=== PATIENT | male | born 1945 | race Caucasian/White ===

== ENCOUNTER 2017-05-16 18:56 | Emergency (ER) | payer MEDICARE, BC ==
[~2017-05-16] VITALS: Ht 175.3 cm; Wt 90.8 kg
[2017-05-16 19:53] LABS: HEMATOCRIT 39.4 % (39.0-50.0); HEMOGLOBIN 13.2 g/dl (14.0-18.0); IMMATURE GRANULOCYTES 0.5 % (0.0-1.0); MEAN CELL VOLUME 91.8 fL CALC (80.0-100.0); MEAN CORPUSCULAR HGB 30.8 pG CALC (26.0-32.0); MEAN CORPUSCULAR HGB CONC 33.5 g/L CALC (32.0-36.0); NEUT# 5.05 thou/uL (1.82-7.42); RED BLOOD COUNT 4.29 mill/uL (4.70-6.10); RED CELL DISTRI WIDTH 13.9 % (11.5-15.5)
--- NOTE | 2017-05-16 19:59 | NUR ---
BREATHING TREATMENT GIVEN. BREATHING TECH. FOR GOOD DEPOSITION TO THE LUNGS.
[2017-05-16 20:05] LABS: ALBUMIN 4.5 g/dL (3.2-5.0); ALKALINE PHOSPHATASE 122 u/l (38-126); ANION GAP 17 (6-22 (CALC)); BILIRUBIN, TOTAL 1.9 mg/dL (0.0-1.4); BUN 8 mg/dL (8-23); BUN/CREATININE RATIO 8 (12-20 (CALC)); CARBON DIOXIDE 30 mmol/l (22-30); CHLORIDE 96 mmol/l (95-108); CREATININE 1.1 mg/dL (0.7-1.3); GFR > 60 ML/MIN (>=60 (CALC)); GFR FOR AFR.AMER. > 60 ML/MIN (>=60 (CALC)); POTASSIUM 4.2 mmol/l (3.5-5.1); SGOT/AST 29 u/l (19-48); SGPT/ALT 28 u/l (11-66); SODIUM 139 mmol/l (137-146); TOTAL PROTEIN 7.2 g/dL (6.3-8.2)
[2017-05-16 20:14] LABS: MYOGLOBIN 47 ng/mL (0 - 121)
[2017-05-16 20:17] LABS: INFLUENZA A POSITIVE (NONE DETECT); INFLUENZA B NONE DETECTED (NONE DETECT)
[2017-05-16] MEDS ORDERED: MEDDOSEPAK PO (20:37)
[2017-05-16] MEDS ORDERED: TAM75CAP PO (20:37)
[2017-05-16] MEDS ORDERED: ZPAK PO (20:53)
[2017-05-16 21:10] VITALS: BP 123/66
== END 2017-05-16 21:22 | disposition left against medical advice (07) ==
LOC: ED 18:56
PROVIDERS: Emergency Medicine
DX: J44.1 Chronic obstructive pulmonary disease with (acute) exacerbation (principal); J11.1 Influenza due to unidentified influenza virus with other respiratory manifestations; I48.91 Unspecified atrial fibrillation; Z79.01 Long term (current) use of anticoagulants; Z91.19 Patient's noncompliance with other medical treatment and regimen; R06.02 Shortness of breath

== ENCOUNTER 2017-08-23 19:14 | Observation (INO) | payer MEDICARE, BC ==
[~2017-08-23] VITALS: Ht 175.3 cm; Wt 96.0 kg
[~2017-08-23 19:14] MED LIST: MEDDOSEPAK PO; TAM75CAP PO; ZPAK PO
[2017-08-23] MEDS ORDERED: ADVAIR DISK2 IN (19:47)
[2017-08-23] MEDS ORDERED: WARFARIN4 MG PO (19:48)
[2017-08-23] MEDS ORDERED: LOPRESSOR 550 MG/TAB PO (19:49)
[2017-08-23] MEDS ORDERED: SERTRALINE50 MG PO (19:49)
[2017-08-23] MEDS ORDERED: DILTIAZEM180 M1 PO (19:49)
[2017-08-23] MEDS ORDERED: ALPRAZOLAM0.25 MG PO (19:50)
[2017-08-23 19:52] LABS: HEMATOCRIT 41.1 % (39.0-50.0); HEMOGLOBIN 13.6 g/dl (14.0-18.0); IMMATURE GRANULOCYTES 0.3 % (0.0-1.0); MEAN CELL VOLUME 92.8 fL CALC (80.0-100.0); MEAN CORPUSCULAR HGB 30.7 pG CALC (26.0-32.0); MEAN CORPUSCULAR HGB CONC 33.1 g/L CALC (32.0-36.0); NEUT# 5.44 thou/uL (1.82-7.42); RED BLOOD COUNT 4.43 mill/uL (4.70-6.10); RED CELL DISTRI WIDTH 14.1 % (11.5-15.5)
[2017-08-23 20:06] LABS: ALBUMIN 4.1 g/dL (3.2-5.0); ALKALINE PHOSPHATASE 146 u/l (38-126); BILIRUBIN, TOTAL 1.1 mg/dL (0.0-1.4); BUN 11 mg/dL (8-23); BUN/CREATININE RATIO 14 (12-20 (CALC)); CARBON DIOXIDE 30 mmol/l (22-30); CHLORIDE 93 mmol/l (95-108); CREATININE 0.8 mg/dL (0.7-1.3); GFR > 60 ML/MIN (>=60 (CALC)); GFR FOR AFR.AMER. > 60 ML/MIN (>=60 (CALC)); SGOT/AST 34 u/l (19-48); SGPT/ALT 26 u/l (11-66); SODIUM 137 mmol/l (137-146); TOTAL PROTEIN 7.2 g/dL (6.3-8.2)
[2017-08-23 20:15] LABS: MYOGLOBIN 39 ng/mL (0 - 121)
[2017-08-23 20:26] LABS: INTERNATIONAL NORMALIZED RATIO 4.4 RATIO (0.7-1.3); PROTHROMBIN TIME 50.5 SECONDS (9.0-12.5)
[2017-08-23 21:17] LABS: ANION GAP 19 (6-22 (CALC)); POTASSIUM 3.8 mmol/l (3.5-5.1)
[2017-08-24 00:25] VITALS: BP 137/73
[2017-08-24 04:10] VITALS: BP 129/78
[2017-08-24 06:15] LABS: HEMATOCRIT 39.1 % (39.0-50.0); HEMOGLOBIN 13.1 g/dl (14.0-18.0); IMMATURE GRANULOCYTES 0.2 % (0.0-1.0); MEAN CELL VOLUME 93.5 fL CALC (80.0-100.0); MEAN CORPUSCULAR HGB 31.3 pG CALC (26.0-32.0); MEAN CORPUSCULAR HGB CONC 33.5 g/L CALC (32.0-36.0); NEUT# 3.93 thou/uL (1.82-7.42); RED BLOOD COUNT 4.18 mill/uL (4.70-6.10)
[2017-08-24 06:15] LABS: URINE BILIRUBIN - DIPSTICK NEGATIVE (NEGATIVE); URINE BLOOD DIPSTICK NEGATIVE (NEGATIVE); URINE COLOR YELLOW; URINE GLUCOSE - DIPSTICK NEGATIVE (NEGATIVE); URINE KETONE NEGATIVE (NEGATIVE); URINE LEUK ESTERASE NEGATIVE (NEGATIVE); URINE NITRITE - DIPSTICK NEGATIVE (Negative); URINE PROTEIN - DIPSTICK NEGATIVE (NEG-TRACE); URINE SPECIFIC GRAVITY <=1.005; URINE UROBILINOGEN - DIPSTICK 0.2 E.U./dL (0.2)
[2017-08-24 06:19] LABS: URINE CLARITY CLEAR
[2017-08-24 06:27] LABS: ANION GAP 16 (6-22 (CALC)); BUN 13 mg/dL (8-23); BUN/CREATININE RATIO 17 (12-20 (CALC)); CARBON DIOXIDE 31 mmol/l (22-30); CHLORIDE 95 mmol/l (95-108); CREATININE 0.8 mg/dL (0.7-1.3); GFR > 60 ML/MIN (>=60 (CALC)); GFR FOR AFR.AMER. > 60 ML/MIN (>=60 (CALC)); POTASSIUM 4.1 mmol/l (3.5-5.1); SODIUM 138 mmol/l (137-146)
[2017-08-24 06:32] LABS: INTERNATIONAL NORMALIZED RATIO 3.8 RATIO (0.7-1.3); PROTHROMBIN TIME 43.5 SECONDS (9.0-12.5)
[2017-08-24 07:30] VITALS: BP 133/77
[2017-08-24 11:38] VITALS: BP 136/75
[2017-08-24] MEDS ORDERED: PREDNISONE20 MG PO (12:02)
[2017-08-24] MEDS ORDERED: Levaquin PO (12:02)
== END 2017-08-24 13:44 | disposition home or self-care (01) ==
LOC: ED 19:14 → ED-I 20:55 → ED 21:06 → MS2 21:07
PROVIDERS: ADMIT Internal Medicine; ATTEND Internal Medicine
DX: J44.1 Chronic obstructive pulmonary disease with (acute) exacerbation (principal); J44.0 Chronic obstructive pulmonary disease with (acute) lower respiratory infection; J20.9 Acute bronchitis, unspecified; I48.91 Unspecified atrial fibrillation; J96.10 Chronic respiratory failure, unspecified whether with hypoxia or hypercapnia; R79.1 Abnormal coagulation profile; T45.515A Adverse effect of anticoagulants, initial encounter; I10 Essential (primary) hypertension; F41.9 Anxiety disorder, unspecified; Z95.0 Presence of cardiac pacemaker; Z99.81 Dependence on supplemental oxygen; Z87.891 Personal history of nicotine dependence; R06.02 Shortness of breath

== ENCOUNTER 2017-08-24 19:29 | Observation (INO) | payer MEDICARE, BC ==
[~2017-08-24] VITALS: Ht 175.3 cm; Wt 91.5 kg
[~2017-08-24 19:29] MED LIST changes: +ADVAIR DISK2 IN; +ALPRAZOLAM0.25 MG PO; +DILTIAZEM180 M1 PO; +LOPRESSOR 550 MG/TAB PO; +Levaquin PO; +PREDNISONE20 MG PO; +SERTRALINE50 MG PO; +WARFARIN4 MG PO
[2017-08-24 20:08] LABS: HEMATOCRIT 37.3 % (39.0-50.0); HEMOGLOBIN 12.4 g/dl (14.0-18.0); IMMATURE GRANULOCYTES 0.7 % (0.0-1.0); MEAN CELL VOLUME 92.8 fL CALC (80.0-100.0); MEAN CORPUSCULAR HGB 30.8 pG CALC (26.0-32.0); MEAN CORPUSCULAR HGB CONC 33.2 g/L CALC (32.0-36.0); NEUT# 5.61 thou/uL (1.82-7.42); RED BLOOD COUNT 4.02 mill/uL (4.70-6.10); RED CELL DISTRI WIDTH 13.9 % (11.5-15.5)
[2017-08-24 20:23] LABS: ALKALINE PHOSPHATASE 109 u/l (38-126); ANION GAP 16 (6-22 (CALC)); BILIRUBIN, TOTAL 0.5 mg/dL (0.0-1.4); BUN 14 mg/dL (8-23); BUN/CREATININE RATIO 20 (12-20 (CALC)); CARBON DIOXIDE 30 mmol/l (22-30); CHLORIDE 92 mmol/l (95-108); CREATININE 0.7 mg/dL (0.7-1.3); GFR > 60 ML/MIN (>=60 (CALC)); GFR FOR AFR.AMER. > 60 ML/MIN (>=60 (CALC)); POTASSIUM 4.3 mmol/l (3.5-5.1); SGOT/AST 31 u/l (19-48); SGPT/ALT 39 u/l (11-66); SODIUM 134 mmol/l (137-146)
[2017-08-24 20:35] LABS: MYOGLOBIN 71 ng/mL (0 - 121)
[2017-08-24 21:11] LABS: INFLUENZA A NONE DETECTED (NONE DETECT); INFLUENZA B NONE DETECTED (NONE DETECT)
[2017-08-24 21:25] VITALS: BP 154/80
[2017-08-25] VITALS (7 sets, daily range): BP systolic 106–179; BP diastolic 60–98
[2017-08-25 05:21] LABS: HEMOGLOBIN 13.6 g/dl (14.0-18.0); IMMATURE GRANULOCYTES 0.7 % (0.0-1.0); MEAN CORPUSCULAR HGB 31.2 pG CALC (26.0-32.0); MEAN CORPUSCULAR HGB CONC 33.2 g/L CALC (32.0-36.0); NEUT# 5.86 thou/uL (1.82-7.42); RED BLOOD COUNT 4.36 mill/uL (4.70-6.10)
[2017-08-25 05:36] LABS: BUN 14 mg/dL (8-23); BUN/CREATININE RATIO 19 (12-20 (CALC)); CARBON DIOXIDE 32 mmol/l (22-30); CHLORIDE 95 mmol/l (95-108); CREATININE 0.7 mg/dL (0.7-1.3); GFR > 60 ML/MIN (>=60 (CALC)); GFR FOR AFR.AMER. > 60 ML/MIN (>=60 (CALC)); POTASSIUM 4.4 mmol/l (3.5-5.1); PROTHROMBIN TIME 23.1 SECONDS (9.0-12.5)
[2017-08-25 05:37] LABS: ANION GAP 18 (6-22 (CALC)); SODIUM 141 mmol/l (137-146)
[2017-08-26] VITALS (7 sets, daily range): BP systolic 152–170; BP diastolic 79–91
[2017-08-26 05:20] LABS: HEMATOCRIT 44.2 % (39.0-50.0); HEMOGLOBIN 14.3 g/dl (14.0-18.0); MEAN CELL VOLUME 96.3 fL CALC (80.0-100.0); MEAN CORPUSCULAR HGB 31.2 pG CALC (26.0-32.0); MEAN CORPUSCULAR HGB CONC 32.4 g/L CALC (32.0-36.0); RED BLOOD COUNT 4.59 mill/uL (4.70-6.10); RED CELL DISTRI WIDTH 14.1 % (11.5-15.5)
[2017-08-26 05:29] LABS: ANION GAP 18 (6-22 (CALC)); BUN 18 mg/dL (8-23); BUN/CREATININE RATIO 22 (12-20 (CALC)); CARBON DIOXIDE 34 mmol/l (22-30); CHLORIDE 95 mmol/l (95-108); CREATININE 0.8 mg/dL (0.7-1.3); GFR > 60 ML/MIN (>=60 (CALC)); GFR FOR AFR.AMER. > 60 ML/MIN (>=60 (CALC)); SODIUM 143 mmol/l (137-146)
[2017-08-26 05:45] LABS: INTERNATIONAL NORMALIZED RATIO 1.8 RATIO (0.7-1.3); PROTHROMBIN TIME 20.6 SECONDS (9.0-12.5)
[2017-08-27 03:05] VITALS: BP 153/77
[2017-08-27 04:55] LABS: INTERNATIONAL NORMALIZED RATIO 1.8 RATIO (0.7-1.3); PROTHROMBIN TIME 20.4 SECONDS (9.0-12.5)
[2017-08-27 04:57] LABS: ANION GAP 15 (6-22 (CALC)); BUN 21 mg/dL (8-23); BUN/CREATININE RATIO 25 (12-20 (CALC)); CARBON DIOXIDE 36 mmol/l (22-30); CHLORIDE 93 mmol/l (95-108); CREATININE 0.8 mg/dL (0.7-1.3); GFR > 60 ML/MIN (>=60 (CALC)); GFR FOR AFR.AMER. > 60 ML/MIN (>=60 (CALC)); POTASSIUM 3.9 mmol/l (3.5-5.1); SODIUM 139 mmol/l (137-146)
[2017-08-27 07:56] VITALS: BP 142/97
[2017-08-27 08:05] VITALS: BP 142/97
[2017-08-27 08:35] LABS: CHOLESTEROL HDL RATIO 4.5 (<4.4 (CALC))
[2017-08-27] MEDS ORDERED: SPIRIVA HANDIHALER IN (12:25)
[2017-08-27] MEDS ORDERED: LEVAQUIN750 MG PO (12:25)
[2017-08-27] MEDS ORDERED: ALBUTEROL SUL0.083 % IN (12:25)
[2017-08-27] MEDS ORDERED: PREDNISONE10 MG PO (12:27)
== END 2017-08-27 15:13 | disposition home or self-care (01) ==
LOC: ED 19:29 → ED-I 20:49 → ED 20:59 → MS2 21:00
PROVIDERS: Emergency Medicine; Nurse Practitioner Family; ADMIT Internal Medicine; ATTEND Internal Medicine
DX: J44.1 Chronic obstructive pulmonary disease with (acute) exacerbation (principal); J96.11 Chronic respiratory failure with hypoxia; J96.12 Chronic respiratory failure with hypercapnia; I10 Essential (primary) hypertension; F41.1 Generalized anxiety disorder; I48.2 Chronic atrial fibrillation; F32.9 Major depressive disorder, single episode, unspecified; Z87.891 Personal history of nicotine dependence; Z79.01 Long term (current) use of anticoagulants; Z99.81 Dependence on supplemental oxygen; Z95.0 Presence of cardiac pacemaker; Z77.090 Contact with and (suspected) exposure to asbestos; Z79.899 Other long term (current) drug therapy; R06.02 Shortness of breath

== ENCOUNTER → 2018-05-11 | Outpatient (REF) | payer MEDICARE, BC ==
[~2018-05-11] MED LIST changes: +ALBUTEROL SUL0.083 % IN; +LEVAQUIN750 MG PO; +PREDNISONE10 MG PO; +SPIRIVA HANDIHALER IN
[2018-05-11 14:13] LABS: INTERNATIONAL NORMALIZED RATIO 1.6 RATIO (0.7-1.3); PROTHROMBIN TIME 16.9 SECONDS (9.0-12.5)
[2018-05-11 14:16] LABS: ALBUMIN 4.6 g/dL (3.2-5.0); ALKALINE PHOSPHATASE 100 u/l (38-126); ANION GAP 16 (6-22 (CALC)); BILIRUBIN, TOTAL 1.6 mg/dL (0.0-1.4); BUN 15 mg/dL (8-23); BUN/CREATININE RATIO 13 (12-20 (CALC)); CALCULATED LDLCHOLESTEROL 82 mg/dL (62-129 (CALC)); CARBON DIOXIDE 26 mmol/l (22-30); CHLORIDE 102 mmol/l (95-108); CHOLESTEROL HDL RATIO 3.4 (<4.4 (CALC)); CREATININE 1.2 mg/dL (0.7-1.3); GFR 59 ML/MIN (>=60 (CALC)); GFR FOR AFR.AMER. > 60 ML/MIN (>=60 (CALC)); HDL CHOLESTEROL 57 mg/dL (>=40); POTASSIUM 4.2 mmol/l (3.5-5.1); SGOT/AST 33 u/l (19-48); SODIUM 140 mmol/l (137-146); TOTAL CHOLESTEROL 194 mg/dl (0-199); TOTAL PROTEIN 7.1 g/dL (6.3-8.2); TOTAL TRIGLYCERIDES 275 mg/dl (30-149); VLDL CHOLESTROL 55 mg/dl (0-38 (CALC))
== END | disposition home or self-care (01) ==
LOC: LAB 12:52
PROVIDERS: ATTEND Internal Medicine
DX: I10 Essential (primary) hypertension (principal); I48.2 Chronic atrial fibrillation; Z79.01 Long term (current) use of anticoagulants

== ENCOUNTER 2019-03-28 | Emergency (ER) | payer MEDICARE, BC ==
[2019-03-28 08:55] LABS: HEMATOCRIT 42.8 % (39.0-50.0); HEMOGLOBIN 13.9 g/dl (14.0-18.0); IMMATURE GRANULOCYTES 0.6 % (0.0-5.0); MEAN CELL VOLUME 95.1 fL CALC (80.0-100.0); MEAN CORPUSCULAR HGB 30.9 pG CALC (26.0-32.0); MEAN CORPUSCULAR HGB CONC 32.5 g/L CALC (32.0-36.0); NEUT# 4.84 thou/uL (1.82-7.42); RED BLOOD COUNT 4.5 mill/uL (4.70-6.10)
[2019-03-28 09:09] LABS: ALBUMIN 4.3 g/dL (3.2-5.0); ALKALINE PHOSPHATASE 127 u/l (38-126); ANION GAP 10 (6-22 (CALC)); BILIRUBIN, TOTAL 1.1 mg/dL (0.0-1.4); BUN 9 mg/dL (8-23); BUN/CREATININE RATIO 9 (12-20 (CALC)); CARBON DIOXIDE 38 mmol/l (22-30); CHLORIDE 94 mmol/l (95-108); CREATININE 0.9 mg/dL (0.7-1.3); GFR > 60 ML/MIN (>=60 (CALC)); GFR FOR AFR.AMER. > 60 ML/MIN (>=60 (CALC)); POTASSIUM 3.9 mmol/l (3.5-5.1); SGOT/AST 31 u/l (19-48); SODIUM 138 mmol/l (137-146); TOTAL PROTEIN 7.6 g/dL (6.3-8.2)
[2019-03-28] MEDS ORDERED: ESCITALOPRAM OX10 MG PO (09:57)
[2019-03-28] MEDS ORDERED: EZALLOR SPRINKLE5 MG PO (09:57)
[2019-03-28] MEDS ORDERED: ALBUTEROL SUL0.083 % IN (09:59)
[2019-03-28] MEDS ORDERED: DOXY-CAPS100 MG PO (10:22)
== END 2019-03-28 11:18 | disposition home or self-care (01) ==
PROVIDERS: Family Medicine
DX: J06.9 Acute upper respiratory infection, unspecified (principal); I10 Essential (primary) hypertension; I48.91 Unspecified atrial fibrillation; J44.9 Chronic obstructive pulmonary disease, unspecified; Z95.0 Presence of cardiac pacemaker; R06.02 Shortness of breath

== ENCOUNTER 2020-12-07 18:15 | Emergency (ER) | payer MEDICARE ==
[~2020-12-07] VITALS: Ht 175.3 cm; Wt 95.0 kg
[~2020-12-07 18:15] MED LIST changes: +DOXY-CAPS100 MG PO; +ESCITALOPRAM OX10 MG PO; +EZALLOR SPRINKLE5 MG PO
[2020-12-07 19:51] LABS: HEMATOCRIT 43.6 % (39.0-50.0); HEMOGLOBIN 13.8 g/dl (14.0-18.0); IMMATURE GRANULOCYTES 0.5 % (0.0-5.0); MEAN CELL VOLUME 92.4 fL CALC (80.0-100.0); MEAN CORPUSCULAR HGB 29.2 pG CALC (26.0-32.0); MEAN CORPUSCULAR HGB CONC 31.7 g/dL CAL (32.0-36.0); NEUT# 4.16 thou/uL (1.82-7.42); RED BLOOD COUNT 4.72 mill/uL (4.70-6.10); RED CELL DISTRI WIDTH 13.4 % (11.5-15.5)
[2020-12-07 20:08] LABS: CPK 94 u/l (52-200)
[2020-12-07 20:10] LABS: ALBUMIN 3.7 g/dL (3.2-5.0); ALKALINE PHOSPHATASE 92 u/l (38-126); ANION GAP 14 (6-22 (CALC)); BUN 7 mg/dL (8-23); BUN/CREATININE RATIO 8 (12-20 (CALC)); CARBON DIOXIDE 26 mmol/l (22-30); CHLORIDE 99 mmol/l (95-108); CREATININE 0.9 mg/dL (0.7-1.3); GFR > 60 ML/MIN (>=60 (CALC)); GFR FOR AFR.AMER. > 60 ML/MIN (>=60 (CALC)); POTASSIUM 4.3 mmol/l (3.5-5.1); SGOT/AST 38 u/l (19-48); SODIUM 135 mmol/l (137-146); TOTAL PROTEIN 6.5 g/dL (6.3-8.2)
[2020-12-07 20:21] LABS: BILIRUBIN, TOTAL 0.4 mg/dL (0.0-1.4); MYOGLOBIN 280 ng/mL (0 - 121)
[2020-12-07 20:41] LABS: TSH, 3RD GENERATION 1.02 uIU/mL (0.47 - 4.68)
[2020-12-07 21:18] VITALS: BP 118/62
== END 2020-12-07 21:15 | disposition home or self-care (01) ==
LOC: ED 18:15
PROVIDERS: Family Medicine
DX: S01.112A Laceration without foreign body of left eyelid and periocular area, initial encounter (principal); S51.812A Laceration without foreign body of left forearm, initial encounter; I10 Essential (primary) hypertension; J45.909 Unspecified asthma, uncomplicated; I48.91 Unspecified atrial fibrillation; J44.9 Chronic obstructive pulmonary disease, unspecified; F10.129 Alcohol abuse with intoxication, unspecified; W10.9XXA Fall (on) (from) unspecified stairs and steps, initial encounter; Y92.009 Unspecified place in unspecified non-institutional (private) residence as the place of occurrence of the external cause; Z79.01 Long term (current) use of anticoagulants

== ENCOUNTER 2021-07-15 10:05 | Emergency (ER) | payer MEDICARE ==
[2021-07-15] VITALS (12 sets, daily range): BP systolic 112–154; BP diastolic 69–130
[~2021-07-15] VITALS: Ht 175.3 cm; Wt 91.0 kg
[2021-07-15 12:05] LABS: HEMATOCRIT 47.6 % (39.0-50.0); HEMOGLOBIN 15.6 g/dl (14.0-18.0); IMMATURE GRANULOCYTES 0.3 % (0.0-5.0); MEAN CORPUSCULAR HGB 30.5 pG CALC (26.0-32.0); MEAN CORPUSCULAR HGB CONC 32.8 g/dL CAL (32.0-36.0); NEUT# 3.95 thou/uL (1.82-7.42); RED BLOOD COUNT 5.12 mill/uL (4.70-6.10); RED CELL DISTRI WIDTH 14.3 % (11.5-15.5)
[2021-07-15 12:25] LABS: ACT PARTIAL THROMBO TIME 33.5 SECONDS (20.0-32.5); PROTHROMBIN TIME 10.4 SECONDS (9.0-12.5)
[2021-07-15] MEDS ORDERED: SILVADENE1 % EX (13:04)
[2021-07-15] MEDS ORDERED: KEFLEX500 MG PO (13:04)
[2021-07-15 13:18] LABS: ALBUMIN 4.3 g/dL (3.2-5.0); ALKALINE PHOSPHATASE 117 u/l (38-126); ANION GAP 10 (6-22 (CALC)); BUN 16 mg/dL (8-23); BUN/CREATININE RATIO 15 (12-20 (CALC)); CARBON DIOXIDE 27 mmol/l (22-30); CHLORIDE 105 mmol/l (95-108); CREATININE 1.1 mg/dL (0.7-1.3); GFR > 60 ML/MIN (>=60 (CALC)); GFR FOR AFR.AMER. > 60 ML/MIN (>=60 (CALC)); POTASSIUM 4.9 mmol/l (3.5-5.1); SGOT/AST 29 u/l (19-48); SODIUM 137 mmol/l (137-146); TOTAL PROTEIN 7.5 g/dL (6.3-8.2)
[2021-07-15 13:19] LABS: BILIRUBIN, TOTAL 1.6 mg/dL (0.0-1.4)
== END 2021-07-15 13:55 | disposition left against medical advice (07) ==
LOC: ED 10:05
PROC: 2W2AX4Z Dressing of Right Upper Arm using Bandage (ICD-10-PCS; principal; 2021-07-15)
DX: T22.231A Burn of second degree of right upper arm, initial encounter (principal); T31.0 Burns involving less than 10% of body surface; L03.113 Cellulitis of right upper limb; I48.91 Unspecified atrial fibrillation; I10 Essential (primary) hypertension; J44.9 Chronic obstructive pulmonary disease, unspecified; Z91.19 Patient's noncompliance with other medical treatment and regimen; Z95.0 Presence of cardiac pacemaker; X03.3XXA Fall due to controlled fire, not in building or structure, initial encounter

== ENCOUNTER 2021-10-04 14:47 | Inpatient (IN) | payer MEDICARE ==
[~2021-10-04] VITALS: Ht 175.3 cm; Wt 96.4 kg
[2021-10-04] VITALS (45 sets, daily range): BP systolic 96–162; BP diastolic 56–115
[~2021-10-04 14:47] MED LIST changes: +KEFLEX500 MG PO; +SILVADENE1 % EX
[2021-10-04 15:53] LABS: HEMATOCRIT 42.5 % (39.0-50.0); MEAN CELL VOLUME 98.2 fL CALC (80.0-100.0); MEAN CORPUSCULAR HGB 30.7 pG CALC (26.0-32.0); MEAN CORPUSCULAR HGB CONC 31.3 g/dL CAL (32.0-36.0); NEUT# 3.88 thou/uL (1.82-7.42); RED BLOOD COUNT 4.33 mill/uL (4.70-6.10)
[2021-10-04 16:00] LABS: HEMOGLOBIN 13.3 g/dl (14.0-18.0)
[2021-10-04 16:08] LABS: INTERNATIONAL NORMALIZED RATIO 1.1 RATIO (0.7-1.3); PROTHROMBIN TIME 11.5 SECONDS (9.0-12.5)
[2021-10-04 16:17] LABS: ALBUMIN 3.9 g/dL (3.2-5.0); ALKALINE PHOSPHATASE 153 u/l (38-126); ANION GAP 19 (6-22 (CALC)); BILIRUBIN, TOTAL 1.7 mg/dL (0.0-1.4); BUN 18 mg/dL (8-23); BUN/CREATININE RATIO 19 (12-20 (CALC)); CARBON DIOXIDE 30 mmol/l (22-30); CHLORIDE 97 mmol/l (95-108); CREATININE 0.9 mg/dL (0.7-1.3); GFR FOR AFR.AMER. > 60 ML/MIN (>=60 (CALC)); GFR OTHER RACES > 60 ML/MIN (>=60 (CALC)); POTASSIUM 4.4 mmol/l (3.5-5.1); SODIUM 142 mmol/l (137-146); TOTAL PROTEIN 6.8 g/dL (6.3-8.2)
[2021-10-04 16:27] LABS: SGOT/AST 113 u/l (19-48)
[2021-10-04 16:29] LABS: MYOGLOBIN 50 ng/mL (0 - 121)
[2021-10-04 23:17] LABS: URINE BLOOD DIPSTICK NEGATIVE (NEGATIVE); URINE COLOR YELLOW; URINE GLUCOSE - DIPSTICK NEGATIVE (NEGATIVE); URINE KETONE 15 mg/dL (NEGATIVE); URINE LEUK ESTERASE NEGATIVE (NEGATIVE); URINE PROTEIN - DIPSTICK 100 mg/dL (NEG-TRACE); URINE SPECIFIC GRAVITY >=1.030
[2021-10-04 23:18] LABS: URINE BILIRUBIN - DIPSTICK MODERATE (NEGATIVE)
[2021-10-04 23:19] LABS: URINE NITRITE - DIPSTICK NEGATIVE (Negative)
[2021-10-04 23:28] LABS: URINE EPITHELIAL CELLS MODERATE EPI/hpf (0-FEW)
[2021-10-04 23:29] LABS: URINE BACTERIA MODERATE hpf; URINE COARSE GRANULAR CAST FEW lpf; URINE FINE GRAN CAST FEW lpf; URINE HYALINE CAST FEW lpf (NONE-RARE)
[2021-10-05] VITALS (62 sets, daily range): BP systolic 102–198; BP diastolic 61–119
[2021-10-05 05:18] LABS: HEMATOCRIT 38.8 % (39.0-50.0); HEMOGLOBIN 12.1 g/dl (14.0-18.0); MEAN CELL VOLUME 99.5 fL CALC (80.0-100.0); MEAN CORPUSCULAR HGB CONC 31.2 g/dL CAL (32.0-36.0); RED BLOOD COUNT 3.9 mill/uL (4.70-6.10); RED CELL DISTRI WIDTH 13.1 % (11.5-15.5)
[2021-10-05 05:25] LABS: ANION GAP 12 (6-22 (CALC)); BUN 26 mg/dL (8-23); BUN/CREATININE RATIO 25 (12-20 (CALC)); CARBON DIOXIDE 36 mmol/l (22-30); CHLORIDE 98 mmol/l (95-108); GFR FOR AFR.AMER. > 60 ML/MIN (>=60 (CALC)); GFR OTHER RACES > 60 ML/MIN (>=60 (CALC)); MAGNESIUM 2.1 mg/dL (1.6-2.3); POTASSIUM 4.4 mmol/l (3.5-5.1); SODIUM 141 mmol/l (137-146)
[2021-10-05] MEDS ORDERED: FINASTERIDE5 MG PO (10:40)
[2021-10-05] MEDS ORDERED: TRELEGY ELLIPTA1 AER PO (10:40)
[2021-10-05] MEDS ORDERED: PEPCID40 MG PO (10:41)
[2021-10-06] VITALS (34 sets, daily range): BP systolic 121–182; BP diastolic 70–128
[2021-10-06 05:17] LABS: HEMATOCRIT 43.8 % (39.0-50.0); HEMOGLOBIN 13.5 g/dl (14.0-18.0); MEAN CELL VOLUME 101.2 fL CALC (80.0-100.0); MEAN CORPUSCULAR HGB 31.2 pG CALC (26.0-32.0); MEAN CORPUSCULAR HGB CONC 30.8 g/dL CAL (32.0-36.0); RED BLOOD COUNT 4.33 mill/uL (4.70-6.10)
[2021-10-06 05:34] LABS: BUN 29 mg/dL (8-23); BUN/CREATININE RATIO 31 (12-20 (CALC)); CARBON DIOXIDE 37 mmol/l (22-30); CHLORIDE 98 mmol/l (95-108); CREATININE 0.9 mg/dL (0.7-1.3); GFR FOR AFR.AMER. > 60 ML/MIN (>=60 (CALC)); GFR OTHER RACES > 60 ML/MIN (>=60 (CALC)); MAGNESIUM 2.4 mg/dL (1.6-2.3)
[2021-10-06 05:46] LABS: ANION GAP 9 (6-22 (CALC)); SODIUM 139 mmol/l (137-146)
[2021-10-06 05:54] LABS: POTASSIUM 5.2 mmol/l (3.5-5.1)
[2021-10-07] VITALS (30 sets, daily range): BP systolic 107–175; BP diastolic 66–104
[2021-10-07 05:34] LABS: HEMATOCRIT 42.9 % (39.0-50.0); HEMOGLOBIN 13.4 g/dl (14.0-18.0); MEAN CELL VOLUME 98.6 fL CALC (80.0-100.0); MEAN CORPUSCULAR HGB 30.8 pG CALC (26.0-32.0); MEAN CORPUSCULAR HGB CONC 31.2 g/dL CAL (32.0-36.0); RED BLOOD COUNT 4.35 mill/uL (4.70-6.10); RED CELL DISTRI WIDTH 12.5 % (11.5-15.5)
[2021-10-07 06:29] LABS: ANION GAP 8 (6-22 (CALC)); BUN 36 mg/dL (8-23); BUN/CREATININE RATIO 38 (12-20 (CALC)); CARBON DIOXIDE 38 mmol/l (22-30); CHLORIDE 98 mmol/l (95-108); GFR FOR AFR.AMER. > 60 ML/MIN (>=60 (CALC)); GFR OTHER RACES > 60 ML/MIN (>=60 (CALC)); MAGNESIUM 2.5 mg/dL (1.6-2.3); POTASSIUM 4.3 mmol/l (3.5-5.1); SODIUM 139 mmol/l (137-146)
[2021-10-08 04:53] VITALS: BP 170/87
[2021-10-08 07:00] VITALS: BP 169/95
[2021-10-08 10:25] VITALS: BP 160/83
[2021-10-08 11:01] LABS: HEMATOCRIT 41.8 % (39.0-50.0); HEMOGLOBIN 13.5 g/dl (14.0-18.0); IMMATURE GRANULOCYTES 3.4 % (0.0-5.0); MEAN CELL VOLUME 95.9 fL CALC (80.0-100.0); MEAN CORPUSCULAR HGB CONC 32.3 g/dL CAL (32.0-36.0); NEUT# 9.07 thou/uL (1.82-7.42); RED BLOOD COUNT 4.36 mill/uL (4.70-6.10); RED CELL DISTRI WIDTH 12.5 % (11.5-15.5)
[2021-10-08 11:17] LABS: BUN 28 mg/dL (8-23); BUN/CREATININE RATIO 27 (12-20 (CALC)); CHLORIDE 93 mmol/l (95-108); GFR FOR AFR.AMER. > 60 ML/MIN (>=60 (CALC)); GFR OTHER RACES > 60 ML/MIN (>=60 (CALC)); POTASSIUM 3.8 mmol/l (3.5-5.1); SODIUM 138 mmol/l (137-146)
[2021-10-08 11:24] LABS: ANION GAP 7 (6-22 (CALC))
[2021-10-08 11:38] LABS: CARBON DIOXIDE 42 mmol/l (22-30)
[2021-10-08] MEDS ORDERED: ELIQUIS2.5 MG PO (12:35)
[2021-10-08] MEDS ORDERED: TAMSULOSIN HCL0.4 MG PO (12:35)
[2021-10-08] MEDS ORDERED: LEVAQUIN750 M1 PO (12:36)
[2021-10-08] MEDS ORDERED: LOPRESSOR 550 MG/TAB PO (12:36)
[2021-10-08] MEDS ORDERED: MEDDOSEPAK PO (12:37)
[2021-10-08 15:18] VITALS: BP 138/78
== END 2021-10-08 18:16 | DRG 193 ==
LOC: ED 14:47 → ED-I 15:01 → ED 16:43 → ICU 16:44 → MS2 10-07 17:45
PROVIDERS: Nurse Practitioner; ADMIT Hospitalist; ATTEND Hospitalist
PROC: 5A09357 Assistance with Respiratory Ventilation, Less than 24 Consecutive Hours, Continuous Positive Airway Pressure (ICD-10-PCS; principal; 2021-10-04)
PROC: 0T9B70Z Drainage of Bladder with Drainage Device, Via Natural or Artificial Opening (ICD-10-PCS; 2021-10-06)
DX: J18.9 Pneumonia, unspecified organism (principal); J96.22 Acute and chronic respiratory failure with hypercapnia; J96.21 Acute and chronic respiratory failure with hypoxia; J44.1 Chronic obstructive pulmonary disease with (acute) exacerbation; J44.0 Chronic obstructive pulmonary disease with (acute) lower respiratory infection; I48.91 Unspecified atrial fibrillation; I10 Essential (primary) hypertension; I25.10 Atherosclerotic heart disease of native coronary artery without angina pectoris; F41.1 Generalized anxiety disorder; R33.9 Retention of urine, unspecified; Z95.0 Presence of cardiac pacemaker; Z99.81 Dependence on supplemental oxygen; Z79.01 Long term (current) use of anticoagulants; Z87.891 Personal history of nicotine dependence; Z20.822 Contact with and (suspected) exposure to COVID-19
CPT/HCPCS: J2060

== ENCOUNTER 2022-04-10 22:21 | Emergency (ER) | payer MEDICARE ==
[~2022-04-10] VITALS: Ht 175.3 cm; Wt 105.0 kg
[~2022-04-10 22:21] MED LIST changes: +ACETAMIN500 M2 PO; +ELIQUIS2.5 MG PO; +FINASTERIDE5 MG PO; +LEVAQUIN750 M1 PO; +OXY1; +PEPCID40 MG PO; +TAMSULOSIN HCL0.4 MG PO; +TRELEGY ELLIPTA1 AER PO
[2022-04-10 22:37] VITALS: BP 159/87
[2022-04-10 22:46] VITALS: BP 149/77
[2022-04-10 22:53] LABS: BASO% 0.2 % (0-3); EOS% 1.5 % (0-8); HEMATOCRIT 40.7 % (39.0-50.0); HEMOGLOBIN 13.6 g/dl (14.0-18.0); IMMATURE GRANULOCYTES 2.7 % (0.0-5.0); LYMPH% 11.2 % (15-41); MEAN CELL VOLUME 92.5 fL CALC (80.0-100.0); MEAN CORPUSCULAR HGB 30.9 pG CALC (26.0-32.0); MEAN CORPUSCULAR HGB CONC 33.4 g/dL CAL (32.0-36.0); MONO% 11.6 % (2-13); NEUT# 4.35 thou/uL (1.82-7.42); NEUT% 72.8 % (42-76); RED BLOOD COUNT 4.4 mill/uL (4.70-6.10); RED CELL DISTRI WIDTH 14.1 % (11.5-15.5)
[2022-04-10 23:01] VITALS: BP 157/68
[2022-04-10 23:11] LABS: ACT PARTIAL THROMBO TIME 22.7 SECONDS (20.0-32.5); PROTHROMBIN TIME 10.2 SECONDS (9.0-12.5)
[2022-04-10 23:16] VITALS: BP 125/95
[2022-04-10 23:21] LABS: ALBUMIN 3.8 g/dL (3.2-5.0); ALKALINE PHOSPHATASE 91 u/l (38-126); BILIRUBIN, TOTAL 1.3 mg/dL (0.0-1.4); BUN 24 mg/dL (8-23); BUN/CREATININE RATIO 22 (12-20 (CALC)); CPK 186 u/l (52-200); CREATININE 1.1 mg/dL (0.7-1.3); ETHYL ALCOHOL 0 mg/dl (0-30); GFR FOR AFR.AMER. > 60 ML/MIN (>=60 (CALC)); GFR OTHER RACES > 60 ML/MIN (>=60 (CALC)); MAGNESIUM 1.9 mg/dL (1.6-2.3); TOTAL PROTEIN 6.3 g/dL (6.3-8.2)
[2022-04-10 23:22] LABS: ANION GAP 7 (6-22 (CALC)); CARBON DIOXIDE 39 mmol/l (22-30); CHLORIDE 96 mmol/l (95-108); SGOT/AST 96 u/l (19-48); SODIUM 138 mmol/l (137-146)
[2022-04-10 23:31] VITALS: BP 159/82
[2022-04-10 23:46] VITALS: BP 169/91
[2022-04-10 23:47] LABS: URINE BILIRUBIN - DIPSTICK NEGATIVE (NEGATIVE); URINE BLOOD DIPSTICK NEGATIVE (NEGATIVE); URINE COLOR YELLOW; URINE GLUCOSE - DIPSTICK NEGATIVE (NEGATIVE); URINE KETONE NEGATIVE (NEGATIVE); URINE LEUK ESTERASE NEGATIVE (NEGATIVE); URINE PROTEIN - DIPSTICK NEGATIVE (NEG-TRACE); URINE SPECIFIC GRAVITY 1.015; URINE UROBILINOGEN - DIPSTICK 0.2 E.U./dL (0.2)
[2022-04-10 23:50] LABS: URINE NITRITE - DIPSTICK NEGATIVE (Negative)
[2022-04-10 23:51] LABS: TSH, 3RD GENERATION 2.08 uIU/mL (0.47 - 4.68)
[2022-04-11] MEDS ORDERED: ALBUTEROL SUL0.083 % IN (00:01)
[2022-04-11] MEDS ORDERED: VIBRAMYCIN100 M2 PO (00:01)
[2022-04-11] MEDS ORDERED: NEBULIZER KIT/TUBING IN (00:01)
[2022-04-11] MEDS ORDERED: PREDNISONE50 MG PO (00:02)
[2022-04-11 00:16] VITALS: BP 163/85
[2022-04-11 00:34] VITALS: BP 163/85
== END 2022-04-11 00:34 | disposition home or self-care (01) ==
LOC: ED 22:21
PROVIDERS: Family Medicine
DX: J18.9 Pneumonia, unspecified organism (principal); J44.0 Chronic obstructive pulmonary disease with (acute) lower respiratory infection; J61 Pneumoconiosis due to asbestos and other mineral fibers; I10 Essential (primary) hypertension; I48.91 Unspecified atrial fibrillation; Z99.81 Dependence on supplemental oxygen; Z20.822 Contact with and (suspected) exposure to COVID-19

== ENCOUNTER 2023-09-10 08:16 | Inpatient (IN) | payer MEDICARE ==
[~2023-09-10] VITALS: Ht 175.3 cm; Wt 87.4 kg
[2023-09-10] VITALS (30 sets, daily range): BP systolic 112–162; BP diastolic 64–124
[~2023-09-10 08:16] MED LIST changes: +NEBULIZER KIT/TUBING IN; +PREDNISONE50 MG PO; +VIBRAMYCIN100 M2 PO
[2023-09-10] MEDS ORDERED: SODIUM CHLORIDE 0.9% 1,000 ML IV ONE (08:30)
[2023-09-10] MEDS ORDERED: THIAMINE HCL 100 MG/ML 2ML VIAL IV ONE (08:30)
[2023-09-10] MEDS ORDERED: SERTRALINE HYDR25 MG PO (08:58)
[2023-09-10] MEDS ORDERED: ALBUTEROL108 MCG/AC (08:59)
[2023-09-10 09:17] LABS: BASO% 0.2 % (0-3); HEMATOCRIT 48.1 % (39.0-50.0); HEMOGLOBIN 16.3 g/dl (14.0-18.0); IMMATURE GRANULOCYTES 0.3 % (0.0-5.0); LYMPH% 9.4 % (15-41); MEAN CELL VOLUME 94.7 fL CALC (80.0-100.0); MEAN CORPUSCULAR HGB 32.1 pG CALC (26.0-32.0); MEAN CORPUSCULAR HGB CONC 33.9 g/dL CAL (32.0-36.0); MONO% 8.8 % (2-13); NEUT# 7.54 thou/uL (1.82-7.42); NEUT% 81.3 % (42-76); RED BLOOD COUNT 5.08 mill/uL (4.70-6.10); RED CELL DISTRI WIDTH 13.8 % (11.5-15.5)
[2023-09-10] MEDS ORDERED: chlordiazePOXIDE HCL 25 MG CAP PO ONE (09:25)
[2023-09-10 09:41] LABS: ALBUMIN 4.9 g/dL (3.2-5.0); CREATININE 1.3 mg/dL (0.7-1.3); MAGNESIUM 2.2 mg/dL (1.6-2.3); POTASSIUM 3.9 mmol/l (3.5-5.1); TOTAL PROTEIN 8.4 g/dL (6.3-8.2)
[2023-09-10 09:42] LABS: BILIRUBIN, TOTAL 3.2 mg/dL (0.2-1.3)
[2023-09-10] MEDS ORDERED: LORazepam 2 MG/ML IV ONE (09:45)
[2023-09-10 09:50] LABS: URINE BLOOD DIPSTICK Moderate (NEGATIVE); URINE GLUCOSE - DIPSTICK Negative (NEGATIVE); URINE KETONE 15 mg/dL (NEGATIVE); URINE LEUK ESTERASE Negative (NEGATIVE); URINE NITRITE - DIPSTICK Negative (Negative); URINE PH 5.5 (4.5-8.0); URINE PROTEIN - DIPSTICK >=300 mg/dL (NEG-TRACE); URINE SPECIFIC GRAVITY >=1.030; URINE UROBILINOGEN - DIPSTICK 0.2 E.U./dL (0.2)
[2023-09-10 09:51] LABS: URINE COLOR Dark yellow
[2023-09-10 09:57] LABS: URINE HYALINE CAST FEW lpf (NONE-RARE); URINE RBC 0-2 RBC/hpf (0-5); URINE SQUAMOUS EPITHELIAL CELL FEW EPI/hpf (0-FEW); URINE WBC 0-2 WBC/hpf (0-5)
[2023-09-10] MEDS ORDERED: ACETAMINOPHEN 325 MG/TAB PO PRN (11:35)
[2023-09-10] MEDS ORDERED: MAGNESIUM HYDROXIDE 30 ML UDC PO PRN (11:35)
[2023-09-10] MEDS ORDERED: ALBUTEROL SULFATE 8 GM INH IN PRN (11:45)
[2023-09-10] MEDS ORDERED: LORazepam 2 MG/ML IV PRN (12:20)
[2023-09-10] MEDS ORDERED: chlordiazePOXIDE HCL 25 MG CAP PO PRN (12:20)
[2023-09-10] MEDS ORDERED: CEFEPIME HYDROCHLORIDE 2 GM in SODIUM CHLORIDE 0.9% 100 ML IV SCH (13:00)
[2023-09-10] MEDS ORDERED: MULTIPLE VITAMIN 10 ML,THIAMINE HCL 100 MG in DEXTROSE 5% / 0.9% NACL 1,000 ML IV SCH (13:00)
[2023-09-10] MEDS ORDERED: SERTRALINE HCL 25 MG/TAB PO SCH (13:00)
[2023-09-10] MEDS ORDERED: FAMOTIDINE 20 MG/TAB PO SCH (15:00)
[2023-09-10] MEDS ORDERED: AZITHROMYCIN 500 MG in SODIUM CHLORIDE 0.9% 250 ML IV SCH (15:00)
[2023-09-10] MEDS ORDERED: APIXABAN BASE 5 MG TAB PO SCH (21:00)
[2023-09-10] MEDS ORDERED: METOPROLOL TARTRATE 50 MG/TAB PO SCH (21:00)
[2023-09-10] MEDS ORDERED: ENOXAPARIN SODIUM 40 MG/0.4 ML SYR SC SCH (21:00)
[2023-09-11] VITALS (24 sets, daily range): BP systolic 111–165; BP diastolic 60–96
[2023-09-11 05:47] LABS: BASO% 0.5 % (0-3); EOS% 1.3 % (0-8); HEMATOCRIT 42.2 % (39.0-50.0); IMMATURE GRANULOCYTES 0.6 % (0.0-5.0); MEAN CELL VOLUME 98.1 fL CALC (80.0-100.0); MEAN CORPUSCULAR HGB 32.1 pG CALC (26.0-32.0); MEAN CORPUSCULAR HGB CONC 32.7 g/dL CAL (32.0-36.0); MONO% 11.9 % (2-13); NEUT# 4.59 thou/uL (1.82-7.42); NEUT% 72.7 % (42-76); RED BLOOD COUNT 4.3 mill/uL (4.70-6.10); RED CELL DISTRI WIDTH 13.9 % (11.5-15.5)
[2023-09-11 05:57] LABS: HEMOGLOBIN 13.8 g/dl (14.0-18.0)
[2023-09-11 06:15] LABS: ALBUMIN 3.3 g/dL (3.2-5.0); BILIRUBIN, TOTAL 1.7 mg/dL (0.2-1.3); CREATININE 1.1 mg/dL (0.7-1.3); POTASSIUM 4.1 mmol/l (3.5-5.1); TOTAL PROTEIN 5.8 g/dL (6.3-8.2)
[2023-09-12] VITALS (24 sets, daily range): BP systolic 95–198; BP diastolic 58–116
[2023-09-12 05:34] LABS: HEMOGLOBIN 13.5 g/dl (14.0-18.0); MEAN CELL VOLUME 99.3 fL CALC (80.0-100.0); MEAN CORPUSCULAR HGB 32.7 pG CALC (26.0-32.0); MEAN CORPUSCULAR HGB CONC 32.9 g/dL CAL (32.0-36.0); RED BLOOD COUNT 4.13 mill/uL (4.70-6.10); RED CELL DISTRI WIDTH 13.7 % (11.5-15.5)
[2023-09-12 05:52] LABS: ALBUMIN 3.2 g/dL (3.2-5.0); BILIRUBIN, TOTAL 1.3 mg/dL (0.2-1.3); CREATININE 0.9 mg/dL (0.7-1.3); MAGNESIUM 1.8 mg/dL (1.6-2.3); TOTAL PROTEIN 5.4 g/dL (6.3-8.2)
[2023-09-13] VITALS (22 sets, daily range): BP systolic 106–170; BP diastolic 53–97
[2023-09-13] MEDS ORDERED: IPRATROPIUM-Albuterol 0.5MG-2.5MG/3 ML NEB PRN (08:10)
[2023-09-13] MEDS ORDERED: predniSONE 20 MG/TAB PO SCH (09:00)
[2023-09-13] MEDS ORDERED: THIAMINE HCL 100 MG TAB PO SCH (09:00)
[2023-09-13] MEDS ORDERED: FINASTERIDE 5 MG/TAB PO SCH (09:00)
[2023-09-13] MEDS ORDERED: FOLIC ACID 1 MG/TAB PO SCH (09:00)
[2023-09-13] MEDS ORDERED: MULTIPLE VITAMIN TABLET PO SCH (09:00)
[2023-09-14] VITALS (22 sets, daily range): BP systolic 99–161; BP diastolic 37–83
[2023-09-14 04:51] LABS: HEMATOCRIT 41.9 % (39.0-50.0); HEMOGLOBIN 13.6 g/dl (14.0-18.0); MEAN CELL VOLUME 97.7 fL CALC (80.0-100.0); MEAN CORPUSCULAR HGB 31.7 pG CALC (26.0-32.0); MEAN CORPUSCULAR HGB CONC 32.5 g/dL CAL (32.0-36.0); RED BLOOD COUNT 4.29 mill/uL (4.70-6.10); RED CELL DISTRI WIDTH 13.4 % (11.5-15.5)
[2023-09-14 05:05] LABS: ALBUMIN 3.1 g/dL (3.2-5.0); CREATININE 0.7 mg/dL (0.7-1.3); MAGNESIUM 1.7 mg/dL (1.6-2.3); POTASSIUM 4.7 mmol/l (3.5-5.1); TOTAL PROTEIN 5.3 g/dL (6.3-8.2)
[2023-09-14 05:08] LABS: BILIRUBIN, TOTAL 0.6 mg/dL (0.2-1.3)
[2023-09-14] MEDS ORDERED: Zaleplon 5 MG/CAP PO PRN (20:20)
[2023-09-15] VITALS (20 sets, daily range): BP systolic 93–169; BP diastolic 39–121
[2023-09-15 06:46] LABS: BASO% 0.3 % (0-3); EOS% 0.2 % (0-8); HEMATOCRIT 38.4 % (39.0-50.0); HEMOGLOBIN 12.6 g/dl (14.0-18.0); IMMATURE GRANULOCYTES 0.5 % (0.0-5.0); LYMPH% 11.3 % (15-41); MEAN CORPUSCULAR HGB 31.8 pG CALC (26.0-32.0); MEAN CORPUSCULAR HGB CONC 32.8 g/dL CAL (32.0-36.0); MONO% 8.5 % (2-13); NEUT# 4.85 thou/uL (1.82-7.42); NEUT% 79.2 % (42-76); RED BLOOD COUNT 3.96 mill/uL (4.70-6.10); RED CELL DISTRI WIDTH 13.4 % (11.5-15.5)
[2023-09-15 07:41] LABS: ALBUMIN 3.3 g/dL (3.2-5.0); BILIRUBIN, TOTAL 0.6 mg/dL (0.2-1.3); MAGNESIUM 1.9 mg/dL (1.6-2.3); POTASSIUM 4.5 mmol/l (3.5-5.1); TOTAL PROTEIN 5.5 g/dL (6.3-8.2)
[2023-09-15] MEDS ORDERED: AMOXICILLIN & POT CLAVULANATE 875 MG/TAB PO SCH (21:00)
[2023-09-16] VITALS (15 sets, daily range): BP systolic 133–168; BP diastolic 64–90
[2023-09-16 05:25] LABS: EOS% 0.2 % (0-8); HEMATOCRIT 41.3 % (39.0-50.0); HEMOGLOBIN 13.4 g/dl (14.0-18.0); IMMATURE GRANULOCYTES 0.6 % (0.0-5.0); LYMPH% 11.8 % (15-41); MEAN CELL VOLUME 97.6 fL CALC (80.0-100.0); MEAN CORPUSCULAR HGB 31.7 pG CALC (26.0-32.0); MEAN CORPUSCULAR HGB CONC 32.4 g/dL CAL (32.0-36.0); MONO% 8.3 % (2-13); NEUT# 5.14 thou/uL (1.82-7.42); NEUT% 79.1 % (42-76); RED BLOOD COUNT 4.23 mill/uL (4.70-6.10); RED CELL DISTRI WIDTH 13.4 % (11.5-15.5)
[2023-09-16 05:42] LABS: ALBUMIN 3.3 g/dL (3.2-5.0); BILIRUBIN, TOTAL 0.4 mg/dL (0.2-1.3); MAGNESIUM 1.9 mg/dL (1.6-2.3); POTASSIUM 4.5 mmol/l (3.5-5.1); TOTAL PROTEIN 5.6 g/dL (6.3-8.2)
[2023-09-16] MEDS ORDERED: FOLIC ACID1 M1 PO (14:03)
[2023-09-16] MEDS ORDERED: AMOX/K CLAV875 M1 PO (14:03)
[2023-09-17 04:35] VITALS: BP 148/76
[2023-09-17 06:25] LABS: BASO% 0.3 % (0-3); EOS% 0.2 % (0-8); HEMATOCRIT 43.1 % (39.0-50.0); IMMATURE GRANULOCYTES 0.6 % (0.0-5.0); LYMPH% 13.7 % (15-41); MEAN CELL VOLUME 96.9 fL CALC (80.0-100.0); MEAN CORPUSCULAR HGB 31.5 pG CALC (26.0-32.0); MEAN CORPUSCULAR HGB CONC 32.5 g/dL CAL (32.0-36.0); MONO% 11.6 % (2-13); NEUT# 4.64 thou/uL (1.82-7.42); NEUT% 73.6 % (42-76); RED BLOOD COUNT 4.45 mill/uL (4.70-6.10); RED CELL DISTRI WIDTH 13.2 % (11.5-15.5)
[2023-09-17 06:28] LABS: ALBUMIN 3.6 g/dL (3.2-5.0); BILIRUBIN, TOTAL 0.5 mg/dL (0.2-1.3); CREATININE 0.7 mg/dL (0.7-1.3); MAGNESIUM 1.9 mg/dL (1.6-2.3); POTASSIUM 4.4 mmol/l (3.5-5.1); TOTAL PROTEIN 5.7 g/dL (6.3-8.2)
[2023-09-17 07:05] VITALS: BP 164/84
[2023-09-17 11:53] VITALS: BP 126/89
== END 2023-09-17 14:40 | DRG 896 ==
LOC: ED 08:16 → ED-I 09:16 → ED 09:16 → ED-I 10:48 → ED 11:29 → ICU 11:30 → MS2 09-16 18:10
PROVIDERS: Emergency Medicine; Nurse Practitioner Family; Student in an Organized Health Care Education/Training Program; ADMIT Internal Medicine; ATTEND Internal Medicine
DX: F10.132 Alcohol abuse with withdrawal with perceptual disturbance (principal); J69.0 Pneumonitis due to inhalation of food and vomit; I48.20 Chronic atrial fibrillation, unspecified; J96.11 Chronic respiratory failure with hypoxia; I11.0 Hypertensive heart disease with heart failure; I50.9 Heart failure, unspecified; J44.9 Chronic obstructive pulmonary disease, unspecified; F41.1 Generalized anxiety disorder; R53.1 Weakness; R79.89 Other specified abnormal findings of blood chemistry; G31.9 Degenerative disease of nervous system, unspecified; S80.02XA Contusion of left knee, initial encounter; S80.01XA Contusion of right knee, initial encounter; S80.212A Abrasion, left knee, initial encounter; S80.211A Abrasion, right knee, initial encounter; M25.551 Pain in right hip; T45.516A Underdosing of anticoagulants, initial encounter; T44.7X6A Underdosing of beta-adrenoreceptor antagonists, initial encounter; Z91.128 Patient's intentional underdosing of medication regimen for other reason; W01.0XXA Fall on same level from slipping, tripping and stumbling without subsequent striking against object, initial encounter; Y92.009 Unspecified place in unspecified non-institutional (private) residence as the place of occurrence of the external cause; Z79.01 Long term (current) use of anticoagulants; Z99.81 Dependence on supplemental oxygen; Z91.81 History of falling; Z87.891 Personal history of nicotine dependence; Z95.0 Presence of cardiac pacemaker
CPT/HCPCS: J0692; J2060

== ENCOUNTER 2023-11-03 11:00 | Emergency (ER) | payer MEDICARE ==
[~2023-11-03] VITALS: Ht 170.2 cm; Wt 90.4 kg
[2023-11-03] VITALS (10 sets, daily range): BP systolic 126–167; BP diastolic 58–105
[~2023-11-03 11:00] MED LIST changes: +ALBUTEROL108 MCG/AC; +AMOX/K CLAV875 M1 PO; +FOLIC ACID1 M1 PO; +SERTRALINE HYDR25 MG PO
[2023-11-03 11:26] LABS: BASO% 0.2 % (0-3); EOS% 0.2 % (0-8); HEMATOCRIT 46.6 % (39.0-50.0); HEMOGLOBIN 15.2 g/dl (14.0-18.0); IMMATURE GRANULOCYTES 0.2 % (0.0-5.0); LYMPH% 11.9 % (15-41); MEAN CELL VOLUME 94.1 fL CALC (80.0-100.0); MEAN CORPUSCULAR HGB 30.7 pG CALC (26.0-32.0); MEAN CORPUSCULAR HGB CONC 32.6 g/dL CAL (32.0-36.0); NEUT# 9.7 thou/uL (1.82-7.42); NEUT% 79.5 % (42-76); RED BLOOD COUNT 4.95 mill/uL (4.70-6.10); RED CELL DISTRI WIDTH 14.8 % (11.5-15.5)
[2023-11-03 11:42] LABS: ALBUMIN 4.3 g/dL (3.2-5.0); ALKALINE PHOSPHATASE 137 u/l (38-126); ANION GAP 10 (6-22 (CALC)); BILIRUBIN, TOTAL 1.8 mg/dL (0.2-1.3); BUN 5 mg/dL (8-23); BUN/CREATININE RATIO 5 (12-20 (CALC)); CARBON DIOXIDE 26 mmol/l (22-30); CHLORIDE 103 mmol/l (95-108); ESTIMATED GFR 76 ML/MIN (>=90 (CALC)); POTASSIUM 4.7 mmol/l (3.5-5.1); SGOT/AST 30 u/l (19-48); SODIUM 134 mmol/l (137-146); TOTAL PROTEIN 7.2 g/dL (6.3-8.2)
[2023-11-03] MEDS ORDERED: cefTRIAXone SODIUM 2 GM in SODIUM CHLORIDE 0.9% 100 ML IV ONE (11:45)
[2023-11-03] MEDS ORDERED: AZITHROMYCIN 500 MG in SODIUM CHLORIDE 0.9% 250 ML IV ONE (11:45)
[2023-11-03] MEDS ORDERED: IPRATROPIUM-Albuterol 0.5MG-2.5MG/3 ML NEB ONE ×2 (11:45)
[2023-11-03] MEDS ORDERED: methylPREDNISolone SODIUM SUCC 125 MG/2 ML SDV IV ONE (11:45)
[2023-11-03] MEDS ORDERED: DILTIAZEM HCL 25 MG/5 ML SDV IV ONE (12:00)
[2023-11-03] MEDS ORDERED: DILTIAZEM HCL 125 MG in SODIUM CHLORIDE 0.9% 100 ML IV ONE (12:15)
[2023-11-03] MEDS ORDERED: SODIUM CHLORIDE 0.9% 500 ML IV ONE (12:15)
== END 2023-11-03 13:50 | disposition left against medical advice (07) ==
LOC: ED 11:00
PROVIDERS: Family Medicine
DX: J44.1 Chronic obstructive pulmonary disease with (acute) exacerbation (principal); I48.91 Unspecified atrial fibrillation; I10 Essential (primary) hypertension; J96.10 Chronic respiratory failure, unspecified whether with hypoxia or hypercapnia; F41.1 Generalized anxiety disorder; Z99.81 Dependence on supplemental oxygen; Z79.01 Long term (current) use of anticoagulants; Z95.0 Presence of cardiac pacemaker; Z20.822 Contact with and (suspected) exposure to COVID-19; Z53.29 Procedure and treatment not carried out because of patient's decision for other reasons
CPT/HCPCS: Q9967